=== PATIENT | female | born 2000 | race Caucasian/White ===

== ENCOUNTER 2024-08-12 15:27 | Outpatient (CLI) | payer SELFPAY ==
[2024-08-12 15:53] VITALS: BMI 26.0
[2024-08-12] MEDS: TUBERCULIN 5 UNITS/0.1ML 1ML VIAL ID (15:56)
== END 2024-08-12 23:59 | disposition home or self-care (01) ==
LOC: UTC.OUT 15:32
PROVIDERS: Visit Provider Nurse Practitioner Family
DX: Z11.1 Encounter for screening for respiratory tuberculosis (principal)
CPT/HCPCS: 86580

== ENCOUNTER 2025-06-01 08:57 | Outpatient (CLI) | payer BC, SELFPAY ==
--- OUTSIDE RECORDS SUMMARY | 2025-04-18 09:40 | XMS_ITS | Encounter Summary ---
[facility] Address [address] [place] [address] Care Team Providers Care Supervisor [employer] Name Role Phone Kristy Park DO Primary Care Provider [phone] Reason for Visit * Reason Comments Consult Consult BBR * Consultation (Routine) - Closed Specialty Diagnoses / Procedures Referred By Contac t Referred To Contact Plastic Surgery Diagnoses Chronic midline back pain, unspecified back location Large breasts Procedures NM OFFICE/OUTPATIENT NEW MODERATE MDM 45 MINUTES Kristy Park DO [address] [place] [address] Phone: tel: fax: Marina Allison MD [address] [facility] [address] [place] [address] Phone: tel: fax: Referral ID Status Reason Start Date Expiration Date V isits Requested Visits Authorized [id number] Closed Specialty Services Required 02/10/2025 05/12/2026 1 1 Encounter Details Date Type Department Care Team (Late st Contact Info) Description 04/18/2025 9:40 AM EDT Office Visit [facility] SURGERY [address] [place], [place] [id number] Emma Patel MD [address] [facility] [address] [place] [address] Macromastia (Primary Dx); Chronic bilateral thoracic back pain; Intertrigo Social History Tobacco Use Types Packs/Day Years Used Date Smoking Tobacco: Never Smokeless Tobacco: Never Tobacco Cessation:Counseling Given: Not Answered Alcohol Use Standard Drinks/Week Comments Never 0 (1 standard drink = 0.6 oz pur e alcohol) PHQ-2 Answer Date Recorded Patient Health Questionnaire-2 Score 1 02/10/2025 Comments No Sex and Gender Information Value Date Recorded Sex Assigned at Female 10/18/2024 8:54 AM EDT Legal Sex Female 11:50 AM EDT Gender Identity Not on file Sexual Orientation Not on file documented as of this encounter Last Filed Vital Signs Vital Sign Reading Time Taken Comments Blood Pressure 117/79 04/18/2025 9:26 AM EDT Pulse 79 04/18/2025 9:26 AM EDT Temperature - - Respiratory Rate - - Oxygen Saturation 97% 04/18/2025 9:26 AM EDT Inhaled Oxygen Concentration - - Weight 69.4 kg (153 lb) 04/18/2025 9:26 AM EDT Height 157.5 cm (5' 2.01 ) 04/18/2025 9:26 AM ED T Body Mass Index 27.98 04/18/2025 9:26 AM EDT documented in this encounter Progress Notes * Emma Patel MD - 04/18/2025 9:40 AM EDT Chief Complaint Consult (Consult BBR) Subjective History of Present Illness Lesa Garcia is a 24 y.o. female who presents to [facility] PLASTIC & RECONSTRUCTIVE SURGERY as a consult from Kristy Pakr and would like to discuss breast reduction. Her current bra size is a 36, D cup. She would like to be a B cup. She patient does not have a personal or family history of breast cancer. Neck, shoulders, and upper back pain present for 3-4 years. Conservative treatments of chiropractor, with little or temporary relief. Experiences redness under her breast. Trouble sleeping, cannot get comfortable. Trouble exercising, cannot do activities that she would like to do, generally has to wear many sports bras and has to special order bras. Very h eavy and causes discomfort. Recommendations for today of breast reduction. History of Present Illness The patient is a 24-year-old female who presents for breast reduction surgery. She reports experiencing pain in her neck, back, and breasts. She has previously sought emergency care attendant due to spinal issues. She is right-handed and has not given . She expresses a desire to reduce her breast size to a B cup. She has no concerns about potential scarring from the procedure. 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 Allergies: Patient has no known allergies. Allergies Reconciled. Review of Systems All system were reviewed and were negative, except the ones noted above. Review of Systems Objective BP 117/79 (BP Location: Left arm, Patient Position: Sitting, Cuff Size: Adult) Pulse 79 Ht 157.5 cm (62.01 ) Wt 69.4 kg (153 lb) SpO2 97% BMI 27.98 kg/m?? Body mass index is 27.98 kg/m??. BMI is >= 25 and <30. (Overweight) The following options were offered after discussion;: none(medical contraindication) Physical Exam Physical exam: Patient awake, alert, oriented Respirations are non elaborated Patient is not tachycardic Breast exam: Masses: No masses Nipple Discharge: No nipple discharge Axillary Lymphadenopathy: No axillary lymphadenopathy Musculoskeletal: Left clavicle is more projected and higher. Breast: Sternal notch to the right knee was 28 on the right and 28.5 on the left. Inframammary foldto nipple is 14.5 on the right and 14 on the left. Base on the right is 18 on the right and 18.5 onthe left. Left breast is slightly larger. Schnur Scale Score: Body surface area is 1.71 meters squared. Result Review : Assessment and Plan Assessment & Plan 1. Breast reduction surgery. She is a suitable candidate for breast reduction surgery. The procedure will involve the removal ofapproximately half of her current breast volume, which should meet insurance requirements. The surgery will be performed in a hospital setting, with discharge on the same day. The healing process is expected to take up to 6 weeks. Postoperative care instructions include avoiding lifting or pulling on the chest, not wearing a bra, and using ABD pads to collect any blood. She can remove the dressing and shower on the third day post-surgery, after which she should apply Tegaderm. It is recommendedthat she use a recliner to avoid lying on her breasts. Non-narcotic pain medications will be provided starting 3 days prior to surgery, and nerve blocks will be administered on the day of the procedure. All removed tissue will be sent for pathological examination. The potential for permanent scarring was discussed, along with the option of laser treatment, which is not covered by insurance. She was informed that she could contact us via [employer] if she has any further questions. Plan to remove 370g from one breast. Follow-up A preoperative appointment will be scheduled, followed by postoperative visits at 1 week, 1 month, 3 months, and 6 months. Surgery: Bilateral breast reduction [id number]- breast reduction Follow Up No follow-ups on file. Patient was given instructions and counseling regarding her condition. Please see specific information pulled into the AVS if appropriate. Emma Patel MD 04/18/2025 Patient or patient employment program representative verbalized consent for the use of Ambient Listening during the visit with Emma Patel MD for chart documentation. 04/21/2025 10:23 EDT documented in this encounter Plan of Treatment Upcoming Encounters Date Type Department Care Team (Late st Contact Info) Description 01/05/2026 3:30 PM EDT Office Visit [facility] PLASTIC [facility] RECON[facility]IVE SURGERY [address] [facility] [address] [place] [address] Emma Patel MD [address] [facility] [address] [place] [address] 01/27/2026 12:20 PM EDT Hospital Encounter [facility] OR [address] [place] [phone] Emma Patel MD [address] [facility] [address] [place] [address] 01/27/2026 12:20 PM EDT - 01/27/2026 3:42 PM EDT Surgery [facility] OR [address] [place] [id number] Emma Patel MD [address] [facility] [address] [place] [address] BREAST REDUCTION BILATERAL [30745 (CPT )] 02/06/2026 3:30 PM EDT Office Visit [facility] PLAST[facility] RECON[facility]IVE SURGERY [address] [facility] [address] [place] [address] Emma Patel MD [address] [facility] [address] [place] [address] Scheduled Procedures Name Priority Associated Diagnoses Date/Ti me BREAST REDUCTION BILATERAL Macromastia Chronic bilateral thoracic back pain Intertrigo 01/27/2026 12:20 PM EDT documented as of this encounter Visit Diagnoses Diagnosis Macromastia- Primary Hypertrophy of breast Chronic bilateral thoracic back pain Intertrigo Other specified erythematous condition Macromastia Hypertrophy of breast Chronic bilateral thoracic back pain Intertrigo Other specified erythematous condition Macromastia Hypertrophy of breast Chronic bilateral thoracic back pain Intertrigo Other specified erythematous condition documented in this encounter Care Teams Supervisor [employer] Relationship Specialty Start Date End Date [place] [address] PCP - General Family Medicine 02/10/25 documented as of this encounter
[2025-06-01 20:36] LABS: Coronavirus 19, PCR Not Detected (NotDetected); Influenza A, PCR Not Detected (NotDetected); Influenza B, PCR Not Detected (NotDetected)
--- OUTSIDE RECORDS SUMMARY | 2025-06-03 09:01 | XMS_ITS | Clinical Summary ---
[facility] Organization [facility] Address [address] [place] [address] Care Team Providers Care [place] Attendant Name Role Phone Kristy Park Primary Care Provider Allergies No known active allergies Medications propranolol (INDERAL) 20 MG tablet Take 1 tablet by mouth 3 (Three) Times a Day As Needed for anxiety. 90 tablet 1 09/20/2024 3:03 PM EST 09/20/2024 Active desvenlafaxine (PRISTIQ) 100 MG 24 hr tablet Take 1 tablet by mouth Daily. 30 tablet 5 03/22/2025 9:48 AM EDT 03/21/2025 Active lamoTRIgine (LaMICtal) 200 MG tablet Take 1 tablet by mouth once a day 30 tablet 5 03/22/2025 9:48 AM EDT 03/21/2025 Active propranolol (INDERAL) 20 MG tablet Take 1 tablet by mouth 3 (Three) Times a Day As Needed for anxiety. 90 tablet 1 03/22/2025 9:48 AM EDT 03/21/2025 Active desvenlafaxine (PRISTIQ) 50 MG 24 hr tablet Take 1 tablet by mouth Daily. 04/13/2025 Active lamoTRIgine (LaMICtal) 200 MG tablet Take 1 tablet by mouth Daily. 30 tablet 04/29/2025 Active vilazodone (Viibryd) 10 MG tablet tablet Take 1 tablet Every Evening with food for 7 days, THEN take 2 tablets Every Evening for 23 days. 53 tablet 04/29/2025 2:15 PM EDT 04/29/2025 Active lamoTRIgine (LaMICtal) 200 MG tablet Take 1 tablet by mouth Daily. 30 tablet 05/30/2025 10:35 AM EDT 05/26/2025 Active vilazodone (Viibryd) 40 MG tablet tablet Take 1 tablet by mouth Every Evening. 30 tablet 05/26/2025 11:51 AM EDT 05/26/2025 Active Active Problems Problem Noted Date Diagnosed Date Macromastia 04/18/2025 Chronic bilateral thoracic back pain 04/18/2025 Intertrigo 04/18/2025 Encounters Date Type Department Care Team Description 05/24/[address] [facility] SURGERY [address] [facility] [address] [place] [address] Emma Patel MD Reschedule of Surgery 04/21/2025 Prep for Surgery [facility] ORDERS ONLY [address] [facility] [place] [phone] Emma Patel MD Macromastcelso (Primary Dx); Chronic bilateral thoracic back pain; Intertrigo 04/18/2025 9:40 AM EDT Office Visit [facility] SURGERY [address] [facility] [address] [place] [address] Emma Patel MD Macromastcelso (Primary Dx); Chronic bilateral thoracic back pain; Intertrigo 04/18/2025 Travel 03/13/2025 Results Follow-Up [facility] [address] [place] [address] Kristy Park DO 03/08/2025 8:30 AM EDT Lab [facility] [address] [place] [address] 03/08/2025 Travel from Last 3 Months Immunizations Immunization Administration Dates Next Due FluMist 2-49yrs (Nasal) 06/14/2014 Fluzone >6mos 08/12/2024 HPV Quadrivalent 06/14/2014,05/21/2013 Meningococcal MCV4P (Menactra) 03/17/2018 influenza Split 05/21/2013,07/03/2012 Family History Medical History Relation Name Comments Alcohol abuse Father EITAN Hyperlipidemia Father EITAN Mental illness Father EITAN COPD Maternal Grandfather SUKHDEV Vision loss Maternal Grandfather SUKHDEV Arthritis Maternal Grandmother TAHIR Alcohol abuse Mother JACQUELINE Drug abuse Mother JACQUELINE Liver disease Mother JACQUELINE Mental illness Mother JACQUELINE Miscarriages / Stillbirths Mother JACQUELINE Anxiety disorder Sister ROWENA Depression Sister ROWENA Mental illness Sister ROWENA Miscarriages / Stillbirths Sister ROWENA Relation Name Status Comments Father EITAN Alive Maternal Grandfather SUKHDEV Alive Maternal Grandmother TAHIR Alive Mother JACQUELINE Alive Sister ROWENA Alive Social History Tobacco Use Types Packs/Day Years [...] on file Sexual Orientation Not on file Last Filed Vital Signs Vital Sign Reading Time Taken Comments Blood Pressure 117/79 04/18/2025 9:26 AM EDT Pulse 79 04/18/2025 9:26 AM EDT Temperature 36.3 C (97.3 F) 02/10/2025 4:11 PM EDT Respiratory Rate 16 02/10/2025 4:11 PM EDT Oxygen Saturation 97% 04/18/2025 9:26 AM EDT Inhaled Oxygen Concentration - - Weight 69.4 kg (153 lb) 04/18/2025 9:26 AM EDT Height 157.5 cm (5' 2.01 ) 04/18/2025 9:26 AM ED T Body Mass Index 27.98 04/18/2025 9:26 AM EDT Plan of Treatment Upcoming Encounters Date Type Department Care Team (Late st Contact Info) Description 01/05/2026 3:30 PM EDT Office Visit [facility] PLASTIC [facility] RECONSTRUCTIVE SURGERY [address] [facility] [address] [place] [address] Emma Patel MD [address] [place] [address] 01/27/2026 12:20 PM EDT Hospital Encounter [facility] OR [address] [place] [address] Emma Patel MD [address] [place], [place] [address] 01/27/2026 12:20 PM EDT - 01/27/2026 3:42 PM EDT Surgery [facility] OR [address] [place] [address] Emma Patel MD [address] [place], [place] [address] BREAST REDUCTION BILATERAL [86505 (CPT )] 02/06/2026 3:30 PM EDT Office Visit [facility]ON[facility] SURGERY [address] [facility] [address] [place] [address] Emma Patel MD [address] [place], [place] [address] Scheduled Procedures Name Priority Associated Diagnoses Date/Ti me BREAST REDUCTION BILATERAL Macromastia Chronic bilateral thoracic back pain Intertrigo 01/27/2026 12:20 PM EDT Health Maintenance Due Date Last Done Comments Annual Gynecologic Pelvic and Breast Exam 2001 MENINGOCOCCAL B VACCINE (1 of 2 - Standard) 2017 TDAP/TD VACCINES (1 - Tdap) 2020 PAP SMEAR 2022 ANNUAL PHYSICAL 02/10/2025 CHLAMYDIA SCREENING 02/10/2025 HEPATITIS C SCREENING 02/10/2025 INFLUENZA VACCINE 03/11/2025 08/12/2024, , 05/21/2013, Additional history exists HPV VACCINES Completed 06/14/2014, 05/21/2013 Pneumococcal Vaccine 0-49 Aged Out No longer eligible based on patient's age to complete this topic Procedures Procedure Name Priority Date/Time Associated Diagnosis Comments IRON Routine 03/08/2025 8:25 AM EDT Anxiety Episode of recurrent major depressive disorder, unspecified depression episode severity Other fatigue VITAMIN D,25-HYDROXY Routine 03/08/2025 8:25 AM EDT Anxiety Episode of recurrent major depressive disorder, unspecified depression episode severity Other fatigue VITAMIN B12 Routine 03/08/2025 8:25 AM EDT Anxiety Episode of recurrent major depressive disorder, unspecified depression episode severity Other fatigue TSH+FREE T4 Routine 03/08/2025 8:25 AM EDT Anxiety Episode of recurrent major depressive disorder, unspecified depression episode severity Other fatigue COMPREHENSIVE METABOLIC PANEL Routine 03/08/2025 8:25 AM EDT Anxiety Episode of recurrent major depressive disorder, unspecified depression episode severity Other fatigue CBC (NO DIFF) Routine 03/08/2025 8:25 AM EDT Anxiety Episode of recurrent major depressive disorder, unspecified depression episode severity Other fatigue from Last 3 Months Results * (ABNORMAL) TSH+Free T4 (03/08/2025 8:25 AM EDT) TSH 1.980 0.270 - 4.200 uIU/mL [facility] Free T4 0.80(L) 0.92 - 1.68 ng/dL [facility] Blood 03/08/2025 8:25 AM EDT 03/08/2025 Narrative [facility] ([facility]) - 03/09/2025 3:07 AM EDT Performed at: [address] [place] [id number] Kayaking Instructor: Nomi Cormier MD, Phone: [phone] Patient Fasting: Y Kristy Jeanine Park DO LAB BLOOD ORDERABLES Final Result Performing Organization Address City/[facility]/ZIP Co de Phone Number [facility] (AMBULATORY) [address] [place] [address], [facility] [address] [place] [address], * (ABNORMAL) Vitamin D,25-Hydroxy (03/08/2025 8:25 AM EDT) Pathologist [facility] 25 Hydroxy, Vitamin D 27.8(L) 30.0 - 100.0 ng/ml [facility] Comment: Reference Range for Total Vitamin D 25(OH) Deficiency <20.0 ng/mL Insufficiency 21-29 ng/mL Sufficiency 30-100 ng/mL Toxicity >100 ng/ml Blood 03/08/2025 8:25 AM EDT 03/08/2025 Narrative [facility] (AMBULATORY) - 03/09/2025 3:07 AM EDT Performed at: [address] [place] [id number] Kayaking Instructor: Nomi Cormier MD, Phone: [phone] Patient Fasting: Y Kristy Jeanine Park DO LAB BLOOD ORDERABLES Final Result Performing Organization Address [facility]/ZIP Co de Phone Number [facility] [address] [place] [address], [place] [phone] [facility] [address] [place] [id number], * (ABNORMAL) CBC (No Diff) (03/08/2025 8:25 AM EDT) [facility] WBC 5.11 3.40 - 10.80 10*3/mm3 [facility] RBC 4.64 3.77 - 5.28 10*6/mm3 [facility] Hemoglobin 14.3 12.0 - 15.9 g/dL [facility] Hematocrit 43.6 34.0 - 46.6 % [facility] MCV 94.0 79.0 - 97.0 fL [facility] MCH 30.8 26.6 - 33.0 pg [facility] MCHC 32.8 31.5 - 35.7 g/dL [facility] RDW 12.0(L) 12.3 - 15.4 % [facility] Platelets 271 140 - 450 10*3/mm3 [facility] Blood 03/08/2025 8:25 AM EDT 03/08/2025 Narrative [facility] (AM[facility]UL[facility]ORY) - 03/09/2025 3:07 AM EDT Performed at: [address] [place] [id number] Kayaking Instructor: Nmoi Cormier MD, Phone: [phone] Patient Fasting: Y Kristy Jeanine Park LAB BLOOD ORDERABLES Final Result Performing Organization Address [facility] Co de Phone Number [facility] (AMBULATORY) [address] [place] [address], [place] [phone] [facility] [address] [place] [address], [place] [phone] * Iron (03/08/2025 8:25 AM EDT) [facility] Iron 91 37 - 145 mcg/dL [facility] Blood 03/08/2025 8:25 AM EDT 03/08/2025 Narrative [facility] (AM[facility]UL[facility]ORY) - 03/09/2025 3:07 AM EDT Performed at: [address] [place] [address] [address] [place], [place] [id number] Kayaking Instructor: Nomi Cormier MD, Phone: [phone] Patient Fasting: Y Kristy Park DO LAB BLOOD ORDERABLES Final Result Performing Organization Address City/[facility]/ZIP Co de Phone Number [facility] (AMBULATORY) [address] [place] [address], [place] [phone] [facility] [address] [place] [address], [place] [phone] * (ABNORMAL) Vitamin B12 (03/08/2025 8:25 AM EDT) Vitamin B-12 1,028(H) 211 - 946 pg/mL [facility] Comment:Results may be false ly increased if patient taking Biotin. Blood 03/08/2025 8:25 AM EDT 03/08/2025 Narrative [facility] (AMBULATORY) - 03/09/2025 3:07 AM EDT Performed at: [address] [place] [id number] Kayaking Instructor: Nomi Cormier MD, Phone: [phone] Patient Fasting: Y us Kristy Park DO LAB BLOOD ORDERABLES Final Result [facility] (AMBULATORY) [address] [place] [address], [facility] [address] [place] [address], * Comprehensive Metabolic Panel (03/08/2025 8:25 AM EDT) Glucose 74 65 - 99 mg/dL [facility] BUN 6.0 6.0 - 20.0 mg/dL [facility] Creatinine 0.79 0.57 - 1.00 mg/dL [facility] EGFR Result 107.9 >60.0 mL/min/1.7 3 [facility] Comment: GFR Categories in Chronic Kidney Disease (CKD) GFR Category GFR (mL/min/1.73) Interpretation G1 90 or greater Normal or high (1) G2 60-89 Mild decrease (1) G3a 45-59 Mild to moderate decrease G3b 30-44 Moderate to severe decrease G4 15-29 Severe decrease G5 14 or less Kidney failure (1)In the absence of evidence of kidney disease, neither GFR category G1 or G2 fulfill the criteria for CKD. eGFR calculation 2020 CKD-EPI creatinine equation, which does not include race as a factor BUN/Creatinine Ratio 7.6 7.0 - 25.0 [facility] Sodium 140 136 - 145 mmol/L [facility] Potassium 3.8 3.5 - 5.2 mmol/L [facility] Chloride 105 98 - 107 mmol/L [facility] Total CO2 24.5 22.0 - 29.0 mmol/L [facility] Calcium 9.2 8.6 - 10.5 mg/dL [facility] Total Protein 6.7 6.0 - 8.5 g/dL [facility] Albumin 4.3 3.5 - 5.2 g/dL [facility] Globulin 2.4 gm/dL [facility] A/G Ratio 1.8 g/dL [facility] Total Bilirubin 0.2 0.0 - 1.2 mg/dL [facility] Alkaline Phosphatase 60 39 - 117 U/L [facility] AST (SGOT) 18 1 - 32 U/L [facility] ALT (SGPT) 7 1 - 33 U/L [facility] Blood 03/08/2025 8:25 AM EDT 03/08/2025 Narrative [facility] (AMBULATORY) - 03/09/2025 3:07 AM EDT Performed at: [address] [place] [id number] Kayaking Instructor: Nomi Cormier MD, Phone: [phone] Patient Fasting: Y us Kristy Park DO LAB BLOOD ORDERABLES Final Result Performing Organization Address City/State/[facility] Co de Phone Number [facility] (AMBULATORY) [address] [place] [address], [place] [phone] [facility] [address] [place] [address], [place] [phone] from Last 3 Months Insurance [employer] Member Subscriber Plan / Payer (Ef fective 2024-Present) Name:Lesa Garcia Relation to Subscriber:Self Name:Lesa Garcia Payer ID:[id number] (NAIC) Type:Not on file Address: [address] [place] [id number] Care Teams [place] Attendant Relationship Specialty Start Date End Date Kristy Park DO [address] [place] [address] PCP - General Family Medicine 02/10/25
--- OUTSIDE RECORDS SUMMARY | 2025-06-03 09:01 | XMS_ITS | Encounter Summary ---
[facility] Address [address] [place] [address] Care Team Providers Care Law Office Receptionist Name Role Phone Kristy Park Primary Care Provider Reason for Visit * Reason Onset Date Comments Reschedule of Surgery 05/24/2025 Encounter Details Date Type Department Care Team (Late st Contact Info) Description 05/24/2025 Telephone [facility] PLASTIC & RECONSTRUCTIVE SURGERY [address] [phone] Emma Patel MD [address] [address] Reschedule of Surgery Social History Tobacco Use Types Packs/Day Years Used Date Smoking Tobacco: Never Smokeless Tobacco: Never Alcohol Use Standard Drinks/Week Comments Never 0 [...] on file documented as of this encounter Miscellaneous Notes * Telephone Encounter - Nikole Abreu RegSched Rep - 05/24/2025 11:43 AM EDT Patient contacted the office back about needing to rescheduled surgery. Advised patient that we could reschedule to next year patient stated that it needed to be in January due to PTO acquired time. Rescheduled surgery to January 27, 2026 rescheduled follow up for pre-op to 01/05/2026 and post op to 02/06/2023 at 3:30 pm. Advised patient that she would see this appointment changes on her mychart. Scheduled the 01/05 with patient. Contacted the hospital and updated this surgery date. * Telephone Encounter - Nikole Abreu RegSched Rep - 05/24/2025 11:27 AM EDT Attempted to call the patient back to reschedule surgery. The call went to [employer] left message. Will also send a [employer] message. * Telephone Encounter - Rhea Sanchez RegSched Rep - 05/24/2025 8:27 AM EDT Pt called and needs to reschedule her surgery in July due to not enough PTO or FMLA. She would like to do it at the beginning if the year. documented in this encounter Plan of Treatment Upcoming Encounters Date Type Department Care Team (Late st Contact Info) Description 01/05/2026 3:30 PM EDT Office Visit [facility] PLASTIC & RECON[facility]CTIVE SURGERY 511 [facility] [address] [place] [address] Emma Patel MD 511 [facility] [address] [place] [address] 01/27/2026 12:20 PM EDT Hospital Encounter [facility] OR [address] [place] [phone] Emma Patel MD 511 [facility] [address] [place] [address] 01/27/2026 12:20 PM EDT - 01/27/2026 3:42 PM EDT Surgery [facility] [address] [place] [phone] Emma Patel MD 511 [facility] [address] [place] [address] BREAST REDUCTION BILATERAL [[id number] (CPT )] 02/06/2026 3:30 PM EDT Office Visit [facility] PLASTIC & RECONSTRUCTIVE SURGERY 511 [facility] [address] [place] [address] Emma Patel MD 511 [facility] 100 [facility] [place] [address] Scheduled Procedures Name Priority Associated Diagnoses Date/Ti me BREAST REDUCTION BILATERAL Macromastia Chronic bilateral thoracic back pain Intertrigo 01/27/2026 12:20 PM EDT documented as of this encounter Visit Diagnoses Not on filedocumented in this encounter Care Teams Law Office Receptionist Relationship Specialty Start Date End Date Kristy [place] [address] PCP - General Family Medicine 02/10/25 documented as of this encounter
--- OUTSIDE RECORDS SUMMARY | 2025-06-03 09:01 | XMS_ITS | Encounter Summary ---
Author Organization [facility] Address [address] [place] [address] Care Team Providers Care Coal Trimmer Name Role Phone Kristy Park DO Primary Care Provider Encounter Details Date Type Department Care Team (Late st Contact Info) Description 03/13/2025 Results Follow-Up [facility] FAMILY MEDICINE 210 [facility] [place] [address] Kristy Park DO [address] [address] Social History Tobacco Use Types Packs/Day Years Used Date Smoking Tobacco: Never Smokeless Tobacco: Never Alcohol Use Standard Drinks/Week Comments Never 0 (1 standard drink = 0.6 oz pur e alcohol) PHQ-2 Answer Date Recorded Patient Health Questionnaire-2 Score 1 02/10/2025 Comments Unknown Sex and Gender Information Value Date Recorded Sex Assigned at Female 10/18/2024 8:54 AM EDT Legal Sex Female 11:50 AM EDT Gender Identity Not on file Sexual Orientation Not on file documented as of this encounter Plan of Treatment Upcoming Encounters Date Type Department Care Team (Late st Contact Info) Description 01/05/2026 3:30 PM EDT Office Visit [facility] PLASTIC & RECON[facility]IVE SURGERY [address] [facility] [address] [address] [place] [address] Emma Patel MD 511 [facility] [address] [place] [address] 01/27/2026 12:20 PM EDT Hospital Encounter [facility] OR [address] [place] [phone] Emma Patel MD [address] [place] [address] 01/27/2026 12:20 PM EDT - 01/27/2026 3:42 PM EDT Surgery [facility] OR [address] [place] [phone] Emma Patel MD [address] [facility] [address] [place] [address] BREAST REDUCTION BILATERAL [[id number] (CPT )] 02/06/2026 3:30 PM EDT Office Visit [facility] PLASTIC & RECONSTRUCTIVE SURGERY 511 [facility] 100 [place] [address] Emma Patel MD [address] [facility] [address] [place] [address] Scheduled Procedures Name Priority Associated Diagnoses Date/Ti me BREAST REDUCTION BILATERAL Macromastia Chronic bilateral thoracic back pain Intertrigo 01/27/2026 12:20 PM EDT documented as of this encounter Visit Diagnoses Not on filedocumented in this encounter Care Teams Coal Trimmer Relationship Specialty Start Date End Date Kristy Park DO Tanesha MEJIAS [facility] [place] [address] PCP - General Family Medicine 02/10/25 documented as of this encounter
--- OUTSIDE RECORDS SUMMARY | 2025-06-03 09:02 | XMS_ITS | Encounter Summary ---
Author Organization [facility] Address [address] [place] [address] Care Team Providers Care Wiring Technician Name Role Phone Kristy Park DO Primary Care Provider [phone]- [phone] Encounter Details Date Type Department Care Team (Late st Contact Info) Description 04/21/2025 Prep for Surgery [facility] ORDERS ONLY [address] [place] [phone] Emma Patel MD 511 [facility] [address] [place], [place] [phone] Macromastia (Primary Dx); Chronic bilateral thoracic back [...] Description 01/05/2026 3:30 PM EDT Office Visit [facility] PLASTIC & RECON[facility]IVE SURGERY [address] [facility] [address] [place], [place] [phone] Emma Patel MD [address] [place] [address] 01/27/2026 12:20 PM EDT Hospital Encounter [facility] OR [address] [place] [address] Emma Patel MD [address] [place] [address] 01/27/2026 12:20 PM EDT - 01/27/2026 3:42 PM EDT Surgery [facility] OR [address] [place] [address] Emma Patel MD [address] [place] [address] BREAST REDUCTION BILATERAL [[id number] (CPT )] 02/06/2026 3:30 PM EDT Office Visit [facility] PLASTIC & RECON[facility]IVE SURGERY [address] [facility] [address] [place] [address] Emma Patel MD [address] [place] [address] Scheduled Orders Name Type Priority Associated Diagnoses Orde r Schedule Nicotine Screen, Urine - Urine, Clean Catch Lab Routine Macromastia Chronic bilateral thoracic back pain Intertrigo Expected: 04/21/2026 (Approximate), Expires: 04/21/2026 Scheduled Procedures Name Priority Associated Diagnoses Date/Ti [...] condition documented in this encounter Care Teams Wiring Technician Relationship Specialty Start Date End Date Kristy Park DO [address] [place] [address] PCP - General Family Medicine 02/10/25 documented as of this encounter
--- OUTSIDE RECORDS SUMMARY | 2025-06-03 09:02 | XMS_ITS | Encounter Summary ---
[facility] Address [address] [place] [address] Care Team Providers Care Conventional Mortgage Underwriter Name Role Phone Kristy Park DO Primary Care Provider [phone]- [phone] Encounter Details Date Type Department Care Team (Latest Contact Info) Description 04/18/2025 Travel Social History Tobacco Use Types Packs/Day Years [...] [facility] 511 [facility] [address] [place] [address] Emma Patel MD 511 [facility] [address] [place] [address] 01/27/2026 12:20 PM EDT Hospital Encounter [facility] OR [address] [place] [phone] Emma Patel MD 511 [facility] [address] [place] [address] 01/27/2026 12:20 PM EDT - 01/27/2026 3:42 PM EDT Surgery [facility] OR [address] [place] [phone] Emma Patel MD 511 [facility] [address] [place] [address] BREAST REDUCTION BILATERAL [[id number] (CPT )] 02/06/2026 3:30 PM EDT Office Visit [facility] PLASTIC & RECONSTRUCTIVE SURGERY 511 [facility] [address] [place] [address] Emma Patel MD 511 [facility] 100 [facility] [address] Scheduled Procedures Name Priority Associated Diagnoses Date/Ti me BREAST REDUCTION BILATERAL Macromastia Chronic bilateral thoracic back pain Intertrigo 01/27/2026 12:20 PM EDT documented as of this encounter Visit Diagnoses Not on filedocumented in this encounter Care Teams Conventional Mortgage Underwriter Relationship Specialty Start Date End Date Kristy [place] [address] PCP - General Family Medicine 02/10/25 documented as of this encounter
== END 2025-06-01 23:59 ==
LOC: LAB.DROPOF 06-03 08:57
PROVIDERS: PCP Family Medicine; Visit Provider Student in an Organized Health Care Education/Training Program
DX: J06.9 Acute upper respiratory infection, unspecified (principal)
CPT/HCPCS: 87631